=== PATIENT | female | born 1980 | race Caucasian/White ===

== ENCOUNTER 2023-04-24 08:28 | Emergency (ER) | payer OTHER ==
[~2023-04-24] VITALS: Ht 160 cm; Wt 109.1 kg
[2023-04-24 08:35] VITALS: BP 127/73; PULSE 77; RESP 18; TEMP 98.1
[2023-04-24] MEDS ORDERED: ALBU18HF12 IH (08:39)
[2023-04-24] MEDS ORDERED: HYDR-4527 PO (08:39)
[2023-04-24] MEDS ORDERED: OMEP20CA12 PO (08:39)
[2023-04-24] MEDS ORDERED: ATOR20TA65 PO (08:39)
[2023-04-24] MEDS ORDERED: CITA-108 PO (08:39)
[2023-04-24] MEDS ORDERED: BACL10TA PO (08:39)
[2023-04-24] MEDS ORDERED: FOLI-130 PO (08:39)
[2023-04-24] MEDS ORDERED: TOPI25 PO (08:39)
[2023-04-24] MEDS ORDERED: LORA10TA7 PO (08:39)
== END 2023-04-24 13:13 | disposition left against medical advice (07) ==
LOC: EMS 08:35
DX: H57.12 Ocular pain, left eye (principal); Z53.21 Procedure and treatment not carried out due to patient leaving prior to being seen by health care provider
CPT/HCPCS: 99281; Z7502